=== PATIENT | female | born 1990 | race Two or more races ===

== ENCOUNTER 2022-02-22 06:55 | Inpatient (IN) ==
[2022-02-22] MEDS ORDERED: PITOCIN ONE (07:11)
[2022-02-22] MEDS ORDERED: BETADINE SOLN ONE (07:12)
[2022-02-22] MEDS ORDERED: D5 1/2 NS 1,000 mL + PITOCIN 20 UNITS/L IV 20 UNITS/1,000 ML BAG IV ONE (07:12)
[2022-02-22] MEDS ORDERED: D5 1/2 NS 1,000 ML 1,000 ML IV ONE (07:12)
[2022-02-22] MEDS ORDERED: D5 LR + PITOCIN 10 UNITS/L 10 UNITS/1,000 ML BAG IV PRN (07:45)
[2022-02-22] MEDS ORDERED: REGLAN INJ 10 MG VIAL IVP PRN (07:56)
[2022-02-22] MEDS ORDERED: MORPHINE SULFATE INJ 2 MG INJ IVP PRN (07:56)
[2022-02-22] MEDS ORDERED: PITOCIN IVP ONE (07:56)
[2022-02-22] MEDS ORDERED: PHENERGAN INJ 25 MG IM PRN ×2 (07:56→14:10)
[2022-02-22] MEDS ORDERED: D5 1/2 NS 1,000 ML 1,000 ML IV SCH (08:00)
[2022-02-22 08:18] LABS: BILIRUBIN,URINE NEGATIVE (NEGATIVE); BLOOD/HEMOGLOBIN,URINE 2+ (NEGATIVE); GLUCOSE, URINE NEGATIVE (NEGATIVE); KETONES,URINE NEGATIVE (NEGATIVE); LEUKOCYTE ESTERASE ,URINE NEGATIVE (NEGATIVE); NITRITES,URINE NEGATIVE (NEGATIVE); PROTEIN,URINE 3+ (NEGATIVE); UROBILINOGEN,URINE NORMAL (NORMAL)
[2022-02-22 08:27] LABS: BASOPHILS % (AUTO) 0.2 % (0.2-1.0); EOSINOPHILS # (AUTO) 0.1 x10^3/uL (0.0-0.2); EOSINOPHILS % (AUTO) 1.1 % (0.9-2.9); HEMATOCRIT 30.7 % (36.0-47.0); HEMOGLOBIN 10.4 g/dL (12.0-16.0); LYMPHOCYTES # (AUTO) 1.8 X10^3/uL (1.3-2.9); LYMPHOCYTES % (AUTO) 23.4 % (21.0-51.0); MEAN CORPUSCULAR HEMOGLOBIN 25.5 pg (27.0-34.0); MEAN CORPUSCULAR HGB CONC 33.7 g/dL (33.0-35.0); MEAN CORPUSCULAR VOLUME 75.8 fL (80.0-100.0); MEAN PLATELET VOLUME 7.2 fL (7.4-11.0); MONOCYTES # (AUTO) 0.5 x10^3/uL (0.3-0.8); MONOCYTES % (AUTO) 6.1 % (0.0-13.0); NEUTROPHILS # (AUTO) 5.3 x10^3/uL (2.2-4.8); NEUTROPHILS % (AUTO) 69.2 % (42.0-75.0); RED BLOOD COUNT 4.06 X10^6/uL (3.5-5.4); RED CELL DISTRIBUTION WIDTH 15.5 % (11.6-16.5); WHITE BLOOD COUNT 7.6 X10^3/uL (3.6-10.0)
[2022-02-22] MEDS: D5 LR + PITOCIN 10 UNITS/L 10 UNITS/1,000 ML BAG IV ONE ×2 (08:28→08:29)
[2022-02-22 08:41] LABS: APPEARANCE,URINE CLEAR (CLEAR); COLOR,URINE YELLOW (YELLOW)
[2022-02-22 08:42] LABS: BACTERIA,URINE TRACE /HPF (NEGATIVE); SQUAMOUS EPITHELIAL CELL,UR FEW /HPF (NEGATIVE)
[2022-02-22 08:44] LABS: ALANINE AMINOTRANSFERASE 14 Units/L (12-78); ASPARTATE AMINO TRANSFERASE 16 Units/L (15-37); BLOOD UREA NITROGEN 10 mg/dL (7-18); CALCIUM 8.3 mg/dL (8.5-10.1); CARBON DIOXIDE 22.2 mmol/L (21-32); CHLORIDE 104 mmol/L (98-107); CREATININE 0.66 mg/dL (0.55-1.02); LACTATE DEHYDROGENASE 151 Units/L (81-234); SODIUM 136 mmol/L (136-145); URIC ACID 4.9 mg/dL (2.6-6.0); eGFR NON BLACK RACES > 60 (>60)
[2022-02-22] MEDS ORDERED: STADOL INJ ONE (13:00)
[2022-02-22] MEDS ORDERED: XYLOCAINE 1 % (PLAIN) ONE (13:41)
[2022-02-22] MEDS ORDERED: MOTRIN TAB 800 MG PO PRN (14:10)
[2022-02-22] MEDS: D5 1/2 NS 1,000 ML 1,000 ML with PITOCIN 20 UNITS IV SCH ×4 (14:13→22:45)
[2022-02-22] MEDS ORDERED: MILK OF MAGNESIA PO PRN (14:46)
[2022-02-22] MEDS ORDERED: DERMOPLAST PAIN RELIEF SPRAY TOP PRN (14:46)
[2022-02-22] MEDS ORDERED: AMBIEN PO PRN (14:46)
[2022-02-22] MEDS: MOTRIN TAB 800 MG PO PRN (22:50)
[2022-02-23] MEDS: D5 1/2 NS 1,000 ML 1,000 ML with PITOCIN 20 UNITS IV SCH ×2 (06:24)
[2022-02-23 06:41] LABS: HEMATOCRIT 29.4 % (36.0-47.0); HEMOGLOBIN 9.7 g/dL (12.0-16.0)
[2022-02-23] MEDS ORDERED: PRENATAL PLUS PO SCH (09:00)
[2022-02-23] MEDS: MOTRIN TAB 800 MG PO PRN (09:15)
--- NOTE | 2022-02-23 10:26 | NOTE.PROOB ---
progress Note OB- Subjective Data Subjective: No complaints, decreased lochia. Tolerating regular diet. No N/V. Ambulating well. No dysuria. Objective Data Result Diagrams: 02/23/22 06:06 02/22/22 08:10 Objective Data: CV= RRR no MRG Lungs=CTA Bilaterally Abd=(+) BS, soft, NTND, Fundus firm/NT/ at 3 cm below umbilicus. Ext=no edema, NT, no cords Assessment Assessment: ready for d/c Plan (1) PIH ( induced hypertension): Plan: she is doing well since delivery with BP's in 130-140/70-80 without meds. She desires to go home and already has a f/u appointment with Dr. Davis
[2022-02-23 14:48] VITALS: BP 137/89
== END 2022-02-23 15:55 | disposition home or self-care (01) | DRG 807 ==
LOC: LD 06:55 → MED/SURG 14:51
PROVIDERS: ADMIT Obstetrics & Gynecology Obstetrics; ATTEND Obstetrics & Gynecology Obstetrics